=== PATIENT | female | born 1990 | race Caucasian/White ===

== ENCOUNTER 2022-01-08 13:11 | Emergency (ER) | payer OTHER ==
[~2022-01-08] VITALS: Ht 172.7 cm; Wt 104.3 kg
[2022-01-08] MEDS ORDERED: ADIPEX-P37.5 MG PO (13:22)
--- OUTSIDE RECORDS SUMMARY | 2022-01-08 18:03 | XMS ---
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 Sofia VISIT COUNT (12 MO.) 1 SREE Bartholomew TOTAL 1 NOTE: Visits indicate total known visits. ED/UCC VISIT TRACKING (12 MO.) 01/08/2022 13:12 SREE [place] TYPE: Emergency COMPLAINT: - LT THUMB INJURY INPATIENT VISIT TRACKING (12 MO.) No inpatient visits to display in this time frame [email or web address]
== END 2022-01-08 14:54 | disposition home or self-care (01) ==
LOC: ED 13:11
DX: S60.012A Contusion of left thumb without damage to nail, initial encounter (principal); W22.8XXA Striking against or struck by other objects, initial encounter; Z88.2 Allergy status to sulfonamides; Z79.899 Other long term (current) drug therapy
CPT/HCPCS: 29125; 73140; 99283-25

== ENCOUNTER 2024-05-22 10:25 | Day surgery (SDC) | payer OTHER ==
[~2024-05-22] VITALS: Ht 172.7 cm; Wt 119.5 kg
[~2024-05-22 10:25] MED LIST: ADIPEX-P37.5 MG PO; SEVOFLURANE 250 ML BTL INH ONE
[2024-05-22] MEDS ORDERED: ENSKYCE1 EACH PO (10:40)
[2024-05-22 10:44] LABS: BASOPHILS 0.1 % (0-2); EOSINOPHILS 0.1 % (0-6); HEMATOCRIT 41.2 % (35.0-50.0); HEMOGLOBIN 14.6 g/dL (12.0-18.0); LYMPHOCYTES 10.9 % (24-44); MCH 30.3 (27-36); MCHC 35.4 g/dl (30-36); MCV 85.6 fl (81-99); MONOCYTES 6.4 % (0-12); NEUTROPHILS 82.5 % (39-80); PLATELET COUNT 243 K/uL (140-440); RBC 4.82 M/ul (4.3-5.7); RDW 12.8 (10.5-15.0)
[2024-05-22 10:59] LABS: ALBUMIN 4.4 g/dL (3.4-5.0); ALBUMIN/GLOBULIN RATIO 1.26 (1.1-2.4); ANION GAP 16.8 (7-21); BUN/CREATININE RATIO 11.49 (6.0-28.6); CALCIUM 9.1 mg/dL (8.5-10.1); CREATININE, SERUM 0.87 mg/dL (0.55-1.02); POTASSIUM 3.8 mmol/L (3.5-5.1); PROTEIN, TOTAL 7.9 g/dL (6.4-8.2)
[2024-05-22] MEDS ORDERED: ondansetron HCL 4 MG/2 ML VIAL IV ONE (11:00)
[2024-05-22] MEDS ORDERED: MORPHINE SULFATE 4 MG/ML VIAL IV ONE (11:00)
[2024-05-22] MEDS ORDERED: metroNIDAZOLE/SODIUM CHLORIDE 500 MG/100 ML PIGGYBACK IV ONE (11:30)
[2024-05-22] MEDS ORDERED: CEFEPIME HCL/D5W 1 GM/100 ML PIGGYBACK IV ONE (11:30)
[2024-05-22] MEDS ORDERED: SODIUM CHLORIDE 0.9% 40 ML IV ONE (12:09)
[2024-05-22] MEDS ORDERED: iopamidoL 30 ML VIAL ONE (12:09)
[2024-05-22] MEDS ORDERED: LIDOCAINE HCL 1% 30 ML SDV ONE ×2 (12:09→14:00)
[2024-05-22] MEDS ORDERED: METHYLPHENIDATE10 M1 PO (12:30)
[2024-05-22] MEDS ORDERED: METHYLPHENIDATE10 MG PO (12:31)
[2024-05-22] MEDS ORDERED: METHYLPHENIDATE20 M1 PO (12:31)
[2024-05-22 12:39] VITALS: BP 143/77
[2024-05-22] MEDS ORDERED: fentaNYL citrate 100 MCG/2 ML VIAL ONE ×2 (13:59→14:57)
[2024-05-22] MEDS ORDERED: DEXAMETHASONE SOD PHOS 4 MG/ML VIAL ONE (14:00)
[2024-05-22] MEDS ORDERED: dexmedeTOMIDine HCl 200 MCG/2 ML VIAL ONE (14:00)
[2024-05-22] MEDS ORDERED: propofoL 200 MG/20 ML VIAL ONE (14:00)
[2024-05-22] MEDS ORDERED: KETOROLAC TROMETHAMINE 30 MG/ML VIAL ONE (14:00)
[2024-05-22] MEDS ORDERED: ROCURONIUM BROMIDE 50 MG/5 ML SYR ONE ×2 (14:00→14:56)
[2024-05-22] MEDS ORDERED: ondansetron HCL 4 MG/2 ML VIAL ONE (14:00)
[2024-05-22] MEDS ORDERED: LIDOCAINE HCL 2% 5 ML SDV ONE (14:00)
[2024-05-22] MEDS ORDERED: MIDAZOLAM HCL 2 MG/2 ML VIAL ONE (14:00)
[2024-05-22] MEDS ORDERED: ACETAMINOPHEN 1,000 MG/100 ML VIAL ONE (14:06)
[2024-05-22] MEDS ORDERED: ENOXAPARIN SODIUM 40 MG/0.4 ML SYR SUB-Q ONE (14:15)
[2024-05-22] MEDS ORDERED: SUGAMMADEX SODIUM 200 MG/2 ML ML ONE (14:56)
[2024-05-22] MEDS ORDERED: LACTATED RINGER'S 1,000 ML IV ONE (14:58)
[2024-05-22] MEDS ORDERED: PROCHLORPERAZINE EDISYLATE 10 MG/2 ML VIAL IV PRN ×2 (15:15→16:15)
[2024-05-22] MEDS ORDERED: IBLOOD GLUCOSE TEST STRIP 1 EA TEST VI PRN (15:15)
[2024-05-22] MEDS ORDERED: droPERidol 5 MG/2 ML VIAL IV PRN (15:15)
[2024-05-22] MEDS ORDERED: HYDROmorphone HCL 1 MG/ML SYR IV PRN ×2 (15:15→16:15)
[2024-05-22] MEDS ORDERED: NALOXONE HCL 0.4 MG SYR IV PRN ×2 (15:15→16:15)
[2024-05-22] MEDS ORDERED: fentaNYL citrate 50 MCG/ML SDV IV PRN (15:15)
[2024-05-22] MEDS ORDERED: ondansetron HCL 4 MG/2 ML VIAL IV PRN ×2 (15:15→16:15)
--- NOTE | 2024-05-22 16:06 | CONS ---
[facility] [address], [place] [address] Signed DATE OF CONSULTATION: 05/22/2024 CHIEF COMPLAINT: Right upper quadrant abdominal pain. HISTORY OF PRESENT ILLNESS: Yola is a 34-year-old obese female, who for five days now has been having right upper quadrant abdominal pain radiating through to her back. She has had some nausea and vomiting. It seems to be getting worse. She went to her primary care provider yesterday. Her blood work was fine, but the CT scan from yesterday showed a large 2.8 cm gallstone with some gas in the middle of it and most likely some other gallstones as well. She does have some pericholecystic fluid. Common bile duct is unremarkable. The gallbladder wall was not overly thickened. She seems to have a slightly enlarged spleen as well. When the results came on the CT scan earlier today, she was sent to the ER by her primary care provider. I was called by the primary care provider and later by the ER physician as I was operating this morning. Yola does not seem to be in any acute distress, but she seems to be tender in the right upper quadrant. Again the labs are fine. Her beta-hCG is negative. We went ahead and gave her cefepime and Flagyl along with some pain control in the ER. We brought her directly over to our preop area in preparation for her surgery. PAST MEDICAL HISTORY: ADD and obesity. PAST SURGICAL HISTORY: Includes tonsillectomy. SOCIAL HISTORY: She does not smoke, but she does vape. She does not drink. She has a life partner, Karen at [phone]. She has two children, both born vaginally. Arun Hernandez is her primary care provider. 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 She prefers the [facility]. FAMILY HISTORY: None. REVIEW OF SYSTEMS: She had 10 systems reviewed and no new findings. ALLERGIES: Sulfa. MEDICATIONS: Electronically Signed By: MICHAEL PRO MD 05/22/24 1606 PATIENT NAME: YOLA FRASER CONSULTATION DATE OF : [birth year] REPORT #: [id number] PHYSICIAN: MICHAEL PRO MD PCP: ARUN HERNANDEZ PAC REPORT IS CONFIDENTIAL AND NOT TO BE RELEASED WITHOUT AUTHORIZATION [facility] [address] [place] [id number] Signed Oral contraceptive pill and methylphenidate but had been off for two weeks as the local pharmacies are out of this medication. PHYSICAL EXAMINATION: VITAL SIGNS: Her blood pressure is 143/77, heart rate 57, respiratory rate 14, temperature is 98.7, she is 100% on room air. She is 5 feet 8 inches tall and 119 kg with a body mass index of 40. GENERAL: Yola is a 34-year-old obese female, lying supine semi-recumbent in her hospital bed in our preop area. She is in no acute distress. She is not jaundiced. LUNGS: Clear to auscultation bilaterally. HEART: Regular rate and rhythm without murmurs. ABDOMEN: Quite obese. She is soft. I cannot palpate a specific gallbladder nor the liver edge. She says she is tender somewhat laterally. LABORATORY DATA: Her white blood count is 9.9, hemoglobin 14, neutrophils 82. Electrolytes unremarkable. BUN and creatinine unremarkable. Total bilirubin 1.0, AST 10, ALT 23, alkaline phosphatase 61, albumin 4.4, lipase 27. Beta-hCG negative. RADIOGRAPHIC STUDIES: CT scan of abdomen and pelvis from yesterday is reviewed both the report and the images. She indeed has a 2.8 cm gallstone with central lucency. She probably has some other smaller stones as well. The gallbladder wall looks like it is a little bit thickened. She seems to have a little bit of pericholecystic fluid. Common bile duct is unremarkable. She does have splenomegaly. ASSESSMENT AND PLAN: Yola is a 34-year-old obese female, who presents with acute cholecystitis and cholelithiasis. We brought her directly from the ER over to our preop area. She has received IV fluids, pain control and some cefepime and Flagyl. I reviewed with her the above findings. We have discussed the location and function of the gallbladder. We have discussed laparoscopic versus open cholecystectomy. She understands expected intraop and postop course. There is risk to the surgery including, but not limited to bleeding, infection, scarring, change in contour of the skin, damage to bowel, damage to main bile duct, incisional hernias and other unforeseen comorbidities. She has expressed understanding and would like to proceed. Michael Pro MD ALB/MODL Electronically Signed By: MICHAEL PRO MD 05/22/24 1606 PATIENT NAME: YOLA FRASER CONSULTATION DATE OF : [birth year] REPORT #: [id number] PHYSICIAN: MICHAEL PRO MD PCP: ARUN HERNANDEZ [facility] REPORT IS CONFIDENTIAL AND NOT TO BE RELEASED WITHOUT AUTHORIZATION [facility] [address] [place] [address] Signed /[id number] cc: MD Arun Garcia Copies: MICHAEL PRO MD ~ Electronically Signed By: MICHAEL PRO MD 05/22/24 1606 PATIENT NAME: YOLA FRASER TIO CONSULTATION DATE OF : [birth year] REPORT #: [id number] PHYSICIAN: MICHAEL PRO MD PCP: ARUN HERNANDEZ [facility] REPORT IS CONFIDENTIAL AND NOT TO BE RELEASED WITHOUT AUTHORIZATION
[2024-05-22] MEDS ORDERED: LACTATED RINGER'S 1,000 ML IV SCH (16:15)
[2024-05-22] MEDS ORDERED: OXYCODONE HCL 5 MG TAB PO PRN (16:15)
--- NOTE | 2024-05-22 16:17 | NUR ---
05/22/24 1617 Adela Guido 1551- PT ARRIVES TO THE PACU WITH AN ORAL AIRWAY IN PLACE AND 6L OF O2 VIA MASK. BREATHING IS EVEN AND UNLABORED. ALL MONITORS PUT IN PLACE. LR INFUSING IN THE L AC. VSS. PT IS IN SEMI FOWLERS AND APPEARS COMFORTABLE. PT IS NOT REACTIVE TO VERBAL OR TACTILE STIMULI. 1554- PT SHOWS SIGNS OF FACIAL GRIMACING. PT INSTRUCTED TO OPEN HER MOUTH. AFTER A FEW MINUTES PT IS ABLE TO COMPLY AND ORAL AIRWAY IS REMOVED AND O2 IS TURNED OFF. PT IS TEARFUL BUT SHAKES HEAD NO TO QUESTIONS OF PAIN AND NAUSEA. 1610- ICE PACK PUT ON SURGICAL SITE AND PILLOW PUT IN PLACE FOR SPLINTING. PT CONTINUES TO DENY PAIN AND NAUSEA. PT CLAIMS SHE IS "WAKING TEARFUL". MD AT BEDSIDE AND TALKING ABOUT PLAN OF CARE.
[2024-05-22 16:34] VITALS: BP 138/77
--- NOTE | 2024-05-22 16:36 | NUR ---
LE 1630: PT IS BACK TO DS FROM PACU. SHE IS TOLERATING WATER. PT WOULD LIKE PUDDING. CALL LIGHT WITHIN REACH. NO ADDITIONAL NEEDS. DC CRITERIA REVIEWED.
[2024-05-22 17:29] VITALS: BP 146/96
--- NOTE | 2024-05-22 17:53 | NUR ---
HAS TAKEN PO. AMB IN [place]IDS 400MLS. STATES READY TO GO HOME.SURYA HER TO TAKE HOME.
--- NOTE | 2024-05-23 06:22 | OR ---
[facility] [address] [place], [place] [address] Signed DATE OF OPERATION: 05/22/2024 SURGEON: Michael Pro MD PREOPERATIVE DIAGNOSES: Acute cholecystitis and cholelithiasis. POSTOPERATIVE DIAGNOSES: Acute cholecystitis and cholelithiasis. PROCEDURE: Laparoscopic cholecystectomy without intraoperative cholangiogram (prolonged and difficult at 1 hour and two nurses). ESTIMATED BLOOD LOSS: Minimal. FINDINGS: Yola indeed had a large 3 cm gallstone and another gallstone a little over 2 cm in diameter. She indeed had pericholecystic fluid. There was significant edema and gallbladder wall thickening as well. She also has a body mass index of 40 and we had to deal with some extra adipose tissue down around and triangle of Calot and the portal triad. We had to have a 2nd nurse scrub in and help assist. We almost placed our fan retractor as well. We went very carefully and slowly with blunt dissection to the triangle of Calot and then it took extra time to dissect the gallbladder away from the liver. It took more than double the amount of time that we would normally take and we excluded our intraoperative cholangiogram. That would have added another 20 minutes or so to the case as well. In this way, her case was prolonged and difficult. INDICATIONS: Yola is a 34-year-old female with a body mass index of 40. She has had trouble last five days with right upper quadrant abdominal pain radiating through to her back. She has had nausea and vomiting. She went to her primary care provider. CT scan showed her gallbladder wall a little thickened, although the radiologist was not particularly concerned. She did have some pericholecystic fluid. She had at least one gallstone 2.8 cm in diameter with what looks like some air in the center. She also had another stone in the neck of the gallbladder as well. The common bile duct was unremarkable. She does have some splenomegaly. She was sent to the ER this morning when the radiology report came through. Her repeat lab did not show an increased white blood cell count nor were the liver function tests elevated. Her beta-hCG was negative. She received Electronically Signed By: MICHAEL PRO MD 05/23/24 0622 PATIENT NAME: YOLA FRASER OPERATIVE REPORT DATE OF : [birth year] REPORT #: [id number] PHYSICIAN: MICHAEL PRO MD PCP: ARUN HERNANDEZ [facility] REPORT IS CONFIDENTIAL AND NOT TO BE RELEASED WITHOUT AUTHORIZATION [facility] [address] [place], [place] [address] Signed pain control along with cefepime and Flagyl. I have been asked by the primary care provider and the ER doctor to admit her as above. We brought her directly over to our preop area. She also received Lovenox and SCDs were placed. I met with Yola and I reviewed the above findings with her. We discussed the location and function of the gallbladder. We discussed laparoscopic versus open cholecystectomy. We also discussed the expected intraop and postop course. We reviewed the risk including, but not limited to bleeding, infection, scarring, change in contour of the skin, damage to bowel, damage to the main bile duct, incisional hernias and other unforeseen comorbidities. She had expressed understanding and wished to proceed. PROCEDURE IN DETAIL: Yola was taken into the operating room and placed in supine position under general endotracheal tube anesthesia. She already had cefepime and Flagyl on board along with her Lovenox. SCDs were in place. Even then, we could not palpate the liver edge but we could just palpate the top of her gallbladder. She was then prepped and draped in the usual sterile fashion. All the trocars were then placed under direct visualization of the camera without difficulty. We could see immediately she had thickened edematous gallbladder. We had to create a hole in the front and suck out the completely clear bile. We found immediately that there was a stone on the top of the gallbladder about 3 cm in diameter and another stone down near the neck. We had to have a 2nd nurse scrub in and we carefully worked our way down around the triangle of Calot starting at the gallbladder and working our way down with blunt dissection. We isolated the cystic duct and secured with a PDS Endoloop and two clips. We omitted our intraoperative cholangiogram due to the difficulty of the dissection. We very carefully worked our way up to the gallbladder and we found the cystic artery that was coming past the lymph node of Calot. It trifurcated, so we placed two clips and a 3rd clip across that covered the three branches. We divided that next to the gallbladder. We went very slowly and carefully to remove the gallbladder from the gallbladder fossa with the help of the cautery. There was a tremendous amount of edema and it took more than double the amount of time. Finally, the gallbladder was free and we were able to place it into an EndoCatch bag. It was quite large. We used our laparoscopic suturing device to pass 0 Vicryl suture on either side of the fascia of the subxiphoid trocar site. This was tied down to close this fascia primarily. After this, all the gas was allowed to escape and all the trocars were removed. We had to triple the length of our supraumbilical trocar site in order to get the gallbladder out with the two gallstones. The gallbladder was passed off to the circulating nurse onto the back table for photodocumentation. We had to use three interrupted [id number] 0-Vicryl sutures to close our supraumbilical trocar site. We did this very carefully under direct visualization with the help of the 2nd nurse. Local anesthetic was then copiously injected into all trocar sites. Each trocar site was irrigated and suctioned out until clear. The skin and dermis of each trocar site was closed with interrupted 3-0 subcuticular Monocryl sutures. Dry gauze and tape was applied to all incisions. Yola was awakened from her anesthesia, Electronically Signed By: MICHAEL PRO MD 05/23/24 0622 PATIENT NAME: YOLA FRASER OPERATIVE REPORT DATE OF : [birth year] REPORT #: [id number] PHYSICIAN: MICHAEL PRO MD PCP: ARUN HERNANDEZ [facility] REPORT IS CONFIDENTIAL AND NOT TO BE RELEASED WITHOUT AUTHORIZATION [address] [address] Signed extubated in the OR, and taken to recovery room in stable condition. Michael Pro MD ALB/MODL /[id number] cc: PORFIRIO Esparza MD Copies: MICHAEL PRO MD ~ Electronically Signed By: MICHAEL PRO MD 05/23/24 0622 PATIENT NAME: YOLA FRASER TIO OPERATIVE REPORT DATE OF : [birth year] REPORT #: [id number] PHYSICIAN: MICHAEL PRO MD PCP: ARUN HERNANDEZ PAC REPORT IS CONFIDENTIAL AND NOT TO BE RELEASED WITHOUT AUTHORIZATION
--- NOTE | 2024-05-27 10:46 | PATH ---
[facility] [address] [place], [place] [address] Signed SPECIMEN(S): A GALLBLADDER WITH STONES SPECIMEN SOURCE: A. GALLBLADDER WITH STONES CLINICAL HISTORY: Acute cholecystitis FINAL PATHOLOGIC DIAGNOSIS: Gallbladder, cholecystectomy: - Chronic calculous cholecystitis BRP MICROSCOPIC EXAMINATION: Histologic sections of all submitted blocks are examined by light microscopy. These findings, together with the gross examination, support the pathologic diagnosis. GROSS DESCRIPTION: The specimen, labeled and designated "Lance Myers, " and designated on the requisition "gallbladder," is received in formalin and consists of Specimen: Previously opened gallbladder. Dimensions: 10.8 x 4.6 x 3.4 cm. Serosa: Dusky pink and focally congested with one circular defect that is 0.8 cm in greatest dimension. The defect is inked orange. Cystic Duct: Inked, unobstructed. Calculi: Two duydkt-reihb-ffihu-black barrel-shaped calculi that measure up to 3.1 cm in greatest dimension. Mucosa: Maloy-red and granular. Wall thickness: 0.4-0.9 cm. Lymph node: No pericystic lymph nodes are grossly identified. Additional: Gallbladder wall is slightly edematous. Calculus Tutor sections are submitted in (A1). FB (under the direct supervision of a pathologist) The Gross Description was prepared using a voice recognition system. The report was reviewed for accuracy; however, sound-alike word errors, addition and/or deletions may occur. If there is any question about this report, please contact Client Services. ADDITIONAL NOTES: PATIENT NAME: YOLA MYERS PATHOLOGY DATE OF : [birth year] REPORT #: [id number] PHYSICIAN: WINTER JASSO PCP: ARUN HERNANDEZ PAC REPORT IS CONFIDENTIAL AND NOT TO BE RELEASED WITHOUT AUTHORIZATION [address], [place] [address] Signed Immunohistochemical and/or in situ hybridization studies if performed in this case included appropriate positive controls that reacted as expected. This test was developed and its performance characteristics determined by [facility]. It has not been cleared or approved by the U.S. Food and Drug Administration. The FDA has determined that such clearance or approval is not necessary. This test is used for clinical purposes. It should not be regarded as investigational or for research. [facility] is certified under the Clinical Laboratory Improvement Amendments of 1988 (CLIA) as qualified to perform high complexity clinical laboratory testing. PERFORMING LABORATORY: Technical component was performed by [facility], [address] [place] [address] (CLIA# [id number]). Professional interpretation was performed by [facility], [address] [place] [address] (CLIA#: [id number]). Diagnostician: Joel Godoy MD Pathologist Electronically Signed 05/27/2024 Copies: ~ PATIENT NAME: YOLA MYERS PATHOLOGY DATE OF : [birth year] REPORT #: [id number] PHYSICIAN: WINTER JASSO PCP: RAUN HERNANDEZ PAC REPORT IS CONFIDENTIAL AND NOT TO BE RELEASED WITHOUT AUTHORIZATION
== END 2024-05-22 16:45 | disposition home or self-care (01) ==
LOC: ED 10:25 → DSVR 11:58 → DS 11:58 → DSVR 11:59 → DS 11:59
PROVIDERS: Emergency Medicine; ATTEND Colon & Rectal Surgery
PROC: 0FJ44ZZ Inspection of Gallbladder, Percutaneous Endoscopic Approach (ICD-10-PCS; 2024-05-22)
PROC: 0FT40ZZ Resection of Gallbladder, Open Approach (ICD-10-PCS; principal; 2024-05-22 12:45)
DX: K80.12 Calculus of gallbladder with acute and chronic cholecystitis without obstruction (principal); E66.9 Obesity, unspecified; F98.8 Other specified behavioral and emotional disorders with onset usually occurring in childhood and adolescence; Z88.2 Allergy status to sulfonamides; Z68.41 Body mass index [BMI] 40.0-44.9, adult
CPT/HCPCS: 00790; 36415; 80053; 81001; 83690; 84703; 85025; 96374; 96375; 99284; A9270; J0131; J0692; J1100; J1650; J1885; J2003; J2250; J2270; J2405; J2704; J3010; J3490; J7121